=== PATIENT | female | born 2005 | race Caucasian/White ===

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

== ENCOUNTER → 2023-01-04 10:33 | Outpatient (BNVA) | payer MEDICAID, SELFPAY | PROVIDERS: PCP Nurse Practitioner Family; Visit Provider Obstetrics & Gynecology | DX: Z34.92 Encounter for supervision of normal pregnancy, unspecified, second trimester (principal); Z3A.21 21 weeks gestation of pregnancy | CPT/HCPCS: 76816 ==

== ENCOUNTER → 2023-01-18 13:02 | Outpatient (BNVA) | payer MEDICAID, SELFPAY | PROVIDERS: PCP Nurse Practitioner Family; Visit Provider Nurse Practitioner Women's Health | DX: Z34.80 Encounter for supervision of other normal pregnancy, unspecified trimester (principal); Z3A.00 Weeks of gestation of pregnancy not specified | CPT/HCPCS: 82950; 84315 ==

== ENCOUNTER → 2023-02-16 14:46 | Outpatient (BNVA) | payer MEDICAID, SELFPAY | PROVIDERS: PCP Nurse Practitioner Family; Visit Provider Obstetrics & Gynecology | DX: Z34.80 Encounter for supervision of other normal pregnancy, unspecified trimester (principal); Z3A.00 Weeks of gestation of pregnancy not specified | CPT/HCPCS: 84315; 85025 ==

== ENCOUNTER → 2023-03-16 09:09 | Outpatient (BNVA) | payer MEDICAID, SELFPAY | PROVIDERS: PCP Nurse Practitioner Family; Visit Provider Obstetrics & Gynecology | DX: Z34.80 Encounter for supervision of other normal pregnancy, unspecified trimester (principal); Z3A.00 Weeks of gestation of pregnancy not specified | CPT/HCPCS: 84315; 85025 ==

== ENCOUNTER → 2023-03-30 10:00 | Outpatient (BNVA) | payer MEDICAID, SELFPAY | PROVIDERS: PCP Nurse Practitioner Family; Visit Provider Nurse Practitioner Women's Health | DX: O99.019 Anemia complicating pregnancy, unspecified trimester (principal); Z3A.00 Weeks of gestation of pregnancy not specified | CPT/HCPCS: 82607; 82728; 82746; 83550; 84315; 85025 ==

== ENCOUNTER 2023-04-11 08:58 | Oncology outpatient (recurring) (ONCR) | payer MEDICAID, SELFPAY ==
[2023-04-06] MEDS: iron sucrose 500 MG in sodium chloride 0.9% 250 ML 78 MG IV (12:44)
[2023-04-06 16:11] VITALS: BP 122/73; PULSE 78; RESP 17; TEMP 36.6; O2SAT 98
[2023-04-11 10:22] VITALS: BP 124/86; PULSE 86; RESP 16
[2023-04-11] MEDS: iron sucrose 500 MG in sodium chloride 0.9% 250 ML 78 MG IV (10:27)
[2023-04-11 13:25] VITALS: BP 117/74; PULSE 85
== END 2023-04-20 23:59 | disposition home or self-care (01) ==
PROVIDERS: PCP Nurse Practitioner Family; Visit Provider Nurse Practitioner Family
DX: Z53.9 Procedure and treatment not carried out, unspecified reason (principal); O99.013 Anemia complicating pregnancy, third trimester; D50.9 Iron deficiency anemia, unspecified; D51.9 Vitamin B12 deficiency anemia, unspecified; Z3A.36 36 weeks gestation of pregnancy; Z79.899 Other long term (current) drug therapy
CPT/HCPCS: 96365; 96366; 99204; J1756; J7050

== ENCOUNTER → 2023-04-13 08:00 | Outpatient (BNVA) | payer MEDICAID, SELFPAY | PROVIDERS: PCP Nurse Practitioner Family; Visit Provider Obstetrics & Gynecology | DX: Z34.80 Encounter for supervision of other normal pregnancy, unspecified trimester (principal); Z3A.00 Weeks of gestation of pregnancy not specified | CPT/HCPCS: 84315; 87081; 87086 ==

== ENCOUNTER 2023-05-01 20:31 | Inpatient (IN) | payer MEDICAID, SELFPAY ==
[2023-05-01] VITALS (9 sets, daily range): BP systolic 103–127; BP diastolic 51–68; PULSE 66–81; RESP 18; BMI 34.4
[2023-05-01 20:27] LABS: Basophils % 0.2 %; Eosinophils # 0.1 10^3/uL (0.0-0.8); Eosinophils % 1.5 %; Hematocrit 33.1 % (36-47); Lymphocytes # 2.3 10^3/uL (1.5-6.5); Lymphocytes % 25.6 %; Mean Corpuscular HGB Conc 32.3 g/dL (30-55); Mean Corpuscular Hemoglobin 25.4 pg (27-33); Mean Corpuscular Volume 78.6 fl (85-98); Mean Platelet Volume 10.7 fL (7.4-10.4); Monocytes # 0.8 10^3/uL (0.2-0.9); Monocytes % 8.8 %; Neutrophils # 5.76 10^3/uL (1.8-8.0); Neutrophils % 63.5 %; Nucleated Red Blood Cells % 0 %; Platelet Count 222 10^3/cmm (157-399); Red Blood Count 4.21 10^6/uL (3.85-5.65); Red Cell Distribution Width 23.5 % (12.1-15.1); White Blood Count 9.09 10^3/uL (4.5-13.0)
[2023-05-01] MEDS: miSOPROStol 100 mcg tablet 25 MCG VAGINAL (20:57)
[2023-05-02] VITALS (128 sets, daily range): BP systolic 86–149; BP diastolic 49–85; PULSE 59–146; RESP 17–18; TEMP 28.2–37.1; O2SAT 97–100
[2023-05-02] MEDS: miSOPROStol 100 mcg tablet 25 MCG VAGINAL ×2 (01:44→05:44)
--- NOTE | 2023-05-02 08:22 | PM.OPHPUD ---
Labor & Delivery H&P Update Date of Procedure: May 02, 2023 Date H&P Performed: 04/27/23 H&P update information: I have reviewed H&P completed within last 30 days, I have examined patient prior to procedure and No changes to prior documentation Admission Diagnosis:
[2023-05-02] MEDS: dextrose 5%-lactated ringers 1,000 ML 125 ML IV ×3 (11:50→18:57)
[2023-05-02] MEDS: oxytocin 30 UNIT/500 ML BAG IV (11:50)
[2023-05-02] MEDS: lactated ringers 1,000 ML 999 ML IV (12:33)
[2023-05-02] MEDS: ROPivacaine syringe 100 MG/50 ML SYRINGE 10 MG EPIDURAL ×2 (13:28→17:42)
--- NOTE | 2023-05-02 13:43 | P.ANESASSM_ITS ---
Pre-Anesthetic Assessment Height/Weight: Height 1.63 m Weight 91.172 kg Temp Pulse Resp BP Pulse Ox O2 Del Method 98.1 F 136 H 17 86/61 99 Room Air 05/02/23 07:18 05/02/23 13:40 05/02/23 07:18 05/02/23 13:40 05/02/23 13:29 05/01/23 19:00 Epidural Familial anesthetic complications: None Was Beta Tanya taken within 24 hours: N/A Was Clonidine taken within 24 hours: N/A Social No alcohol and No tobacco Exam alert, oriented x 3, clear to auscultation bilaterally and regular rate & rhythm Airway Mallampati: Class II Anesthetic Plan ASA status: 2 Anesthesia: Regional (specify below) Risk of > 500 ml blood loss (7ml/kg in children): Yes, adequate IV access and fluids planned Medications/Allergies Home Medications Medication Instructions Recorded Confirmed Last Taken Type PNV 153-FA 400 mcg-om3 35 mg-dha 1 tab PO 1XD 09/09/22 05/01/23 05/01/23 08:00 History 25 mg-epa 5 mg-fish oil chew tablet ( Gummies) ferrous sulfate 325 mg (65 mg 325 mg PO DAILY 03/30/23 05/01/23 05/01/23 08:00 History iron) tablet mecobalamin (vitamin B12) 1,000 1,000 mcg PO DAILY #30 tabs 04/11/23 05/01/23 Unknown Rx mcg chewable tablet Allergies Allergy/AdvReac Type Severity Reaction Status Date / Time No Known Allergies Allergy Verified 05/01/23 21:15 Current Medications Generic Name Dose Route Start Last Admin Trade Name Earnestine PRN Reason Stop Dose Admin Dextrose/Lactated Ringer's 1,000 mls @ 125 mls/hr 05/01/23 20:30 05/02/23 13:00 Dextrose 5%-Lactated Ringers IV Not Given .Q8H SHABANA Oxytocin 30 unit in 500 mls @ 1 mls/hr 05/02/23 10:15 05/02/23 12:20 Pitocin IV 2 milliunit/min .Q24H SHABANA 2 mls/hr Titration Protocol 1 MILLIUNIT/MIN Lactated Ringer's 1,000 mls @ 999 mls/hr 05/02/23 12:25 05/02/23 12:33 Lactated Ringers IV 999 mls/hr .Q1H1M PRN Administration See label comments Ropivacaine 100 mg in 50 mls @ 10 mls/hr 05/02/23 12:30 05/02/23 13:28 Naropin Syringe EPIDURAL 10 mls/hr .Q5H SHABANA Administration PFSH Anesthesia Medical History Iron deficiency anemia Anemia during 2021-- required iron infusion for 6 weeks No pertinent past medical history Denies diabetes, asthma, hypertension, seizures, DVT/PE PCP: Brii Ahn Surgical History No pertinent past surgical history Family History Family/Other Hypercholesteremia Maternal great grandmother Diabetes maternal aunt Father Hypertension Grandmother Hypertension Paternal Denies family history of Colon cancer Heart disease Breast cancer Uterine cancer Thyroid disease Stroke Female Reproductive History : 3 Data Anesthesia 05/01/23 19:50 Short CBC 05/01/23 Range/Units 19:50 WBC 9.09 (4.5-13.0) 10^3/uL Hgb 10.70 L (12.4-14.8) g/dL Hct 33.1 L (36-47) % MCV 78.6 L (85-98) fl Plt Count 222 (157-399) 10^3/cmm Neut % (Auto) 63.5 % Neut # (Auto) 5.76 (1.8-8.0) 10^3/uL Blood Bank 05/01/23 05/01/23 19:40 21:09 Blood Type Cancelled O Positive Rho(D) Type Cancelled Rh positive Antibody Screen Cancelled Negative Cardiac Studies: 2 No Data to Display
--- NOTE | 2023-05-02 13:43 | ANES.PROC ---
Anesthesia Procedures Procedure/Date: 05/02/23 Epidural: Time Out Performed: Yes Consents Signed: Procedure Consent and NPO Consent Consent: requested by attending/covering physician, from patient, from other, risks and benefits reviewed, patient agrees to proceed and emergency procedure Lumbar Level: L3-L4 Epidural position: sitting Epidural procedure: sterile prep of area, 1% lidocaine to numb the area, 18 g needle, negative for paresthesia passed, neg for paresthesia, test dose given, 1.5% xylocaine 1:200k epi (5 cc), 0.2% Ropivacaine bolus ml (5), placed PCEA, no systemic response, sterile dressing applied, L.U.D. no apparent complications and 0.2% Ropiavacaine @ mls/hr (13) Additional Comments: Anushka at 4.5 cm, threaded to 11 cm, decreased pain of contraction from 5/10 to 1/10
[2023-05-02] MEDS: ondansetron 2 mg/ML SDV 2 mL 4 MG IVP (14:07)
[2023-05-02] MEDS: oxytocin 30 UNIT/500 ML BAG 500 UNIT IV (22:00)
--- NOTE | 2023-05-02 22:23 | PM.DELIVERY ---
Delivery Note: Date of delivery: May 02, 2023 Pre-delivery diagnoses: Term Post-delivery diagnoses: Term delivered Procedure: A spontaneous vaginal delivery Delivering Physician: Ezio Montes MD Estimated blood loss (mL): 300 Delivery: The patient was noted to be complete and pushing, so was placed in the dorsal lithotomy position, prepped and draped in the usual sterile fashion for a vaginal delivery. Pt. Noted to have epidural anesthesia. At 2153 the patient delivered a viable term female infant weighing 3500 g with scores of 8 and 9 at one and five minutes, respectively. The vertex was delivered spontaneously over intact perineum. The patient was asked to push and the head delivered spontaneously in the GURPREET position, over an intact perineum. A nuchal cord was checked and 1 noted, and delivered through around head as necessary. The anterior shoulder delivered easily and the posterior shoulder followed. The remainder of the was easily delivered and the oropharynx and nasopharynx was bulb suctioned. The infant was noted to have spontaneous cry and spontaneous movement of all four extremities. The cord was clamped x 2 and cut and noted to have 2 arteries and one vein. The was passed to the mother's abdomen where nursing personnel were in attendance. Cord sample was then obtained. The placenta delivered intact spontaneously and the uterus was explored. 20 units of Pitocin was placed in the IV bag to firm the uterus. Examination of the cervix and vaginal vault did not reveal any lacerations. A vaginal pack was then placed. Examination of the perineum showed no lacerations. The vaginal pack was then removed. The patient tolerated this procedure well, and recovered in L&D with her infant [or note if infant taken to NICU]. All sponge and needle counts were correct. History History History 3 Term 1 0 Miscarriages/Ectopic 1 Living Children 1 Coding Level of Care Code Acute Code for Chg Fwd
[2023-05-02] MEDS: methylergonovine 0.2 mg/mL INJ 1 mL 0.200000000000000011 MG IM (22:24)
[2023-05-03] VITALS (7 sets, daily range): BP systolic 105–130; BP diastolic 63–79; PULSE 55–74; RESP 16; TEMP 36.7–37.1; O2SAT 97–99
[2023-05-03] MEDS: acetaminophen 325 mg Tablet 650 MG PO (02:08)
[2023-05-03] MEDS: docusate sodium 100 mg Capsule PO ×2 (10:28→18:48)
[2023-05-03] MEDS: ibuprofen 800 mg tablet PO ×2 (10:28→20:18)
[2023-05-03] MEDS: prenatal vitamin Capsule 1 CAP PO (10:28)
[2023-05-03 11:02] LABS: Hematocrit 36.1 % (36-47); Mean Corpuscular HGB Conc 31.9 g/dL (30-55); Mean Corpuscular Hemoglobin 25.3 pg (27-33); Mean Corpuscular Volume 79.3 fl (85-98); Mean Platelet Volume 10.2 fL (7.4-10.4); Platelet Count 207 10^3/cmm (157-399); Red Blood Count 4.55 10^6/uL (3.85-5.65); Red Cell Distribution Width 23.6 % (12.1-15.1); White Blood Count 12.25 10^3/uL (4.5-13.0)
--- NOTE | 2023-05-03 20:40 | P.PN_ITS ---
Subjective 2 Subjective: : 18-year-old female is status post a spontaneous vaginal delivery date 1. No complaints Vitals/I&O/Wt Last Vital Signs Temp 97.9 F 05/04/23 04:00 Pulse 61 05/04/23 04:00 Resp 14 05/04/23 04:00 BP 104/64 05/04/23 04:00 Pulse Ox 98 05/04/23 04:00 O2 Del Method Room Air 05/04/23 04:00 Physical Exam 2 Narrative: GA; alert and oriented x 3 HEENT: normal Breasts: engorged Nipples - skin intact Lungs; clear to auscultation Heart: regular rhythm, no murmurs. Abd: Appropriately tender. BS+. Uterine fundus below umbilicus. No Fundal Tenderness. Perineum: normal lochia. Extremities: no edema, no cyanosis, no tenderness. Urinary Catheter Management: Chávez Latex Free: Cath Placed During This Visit: yes, but has since been removed by the nurse Reason for Continuing Indwelling Catheter: Decision to DC Catheter Date Urinary Catheter Removed: 05/03/23 Time Urinary Catheter Discontinued: 21:20 Data 05/03/23 10:30 A&P Assessment and plan (1) Term delivered: Mrs. Galo 18-year-old female G2, P2 admitted for elective induction who is status post spontaneous vaginal delivery day 1. Afebrile and hemodynamically stable. Tolerating diet well. Ambulating without difficulty. Will discharge home after 24 hours Attestations 2 Medical Necessity Statement*: In my professional opinion poor admitting diagnosis. Coding Level of Care Code Acute Code for Chg Fwd Diagnoses Term delivered O80
--- NOTE | 2023-05-03 20:49 | PC.NURSE ---
-This nurse Ana Lilia Joseph RN placed call to Dr. Montes at 2004 to update on patient status. Patient requested to see if she could be discharge tonight. It was handed off in report that the patient had not been see by the physician since delivery 05/02/23 at 2153. When asked patient denies seeing physician since delivery as well. At this time this nurse requested Dr. Montes at bedside to round on patient per policy. Dr. Montes reported that he would not be coming in and he would be in in the morning to discharge the patient. This nurse restated that no physician had been to see the patient since delivery. Dr. Montes stated I will be in in the morning to discharge. and hung up the phone. -Luciana Boo RN charge nurse for the evening placed call to Dr. Montes at 2007 to restate that a physician has not yet seen the patient since delivery, and per policy we have to have a physician see the patient every calendar day. Dr. Montes stated you can report me, I will see her tomorrow, bye. then hung up the phone. -Luciana Boo RN notified art manager Ellie Fan RN and day sales department supervisor Ariel Valdes RN of incident. -2029 Dr. Montes reported to Labor and Delivery and walked in patients room. 2030 off unit.
[2023-05-04 04:00] VITALS: BP 104/64; PULSE 61; RESP 14; TEMP 36.6; O2SAT 98
[2023-05-04] MEDS: docusate sodium 100 mg Capsule PO (08:18)
--- NOTE | 2023-05-04 08:19 | PM.OBGYDC ---
Discharge Providers TRANSITION MGR Date of Admission: 05/01/23 20:31 Date of Discharge: 05/04/23 Attending Provider at Admission: Ezio Montes MD Attending Provider at Discharge: Ezio Montes MD Primary TRANSITION MGR: Ezio Montes MD Primary Care Provider: HAYDEN Uribe Diagnoses at Discharge Discharge Diagnosis (1) Term delivered: Status: Resolved Reason for Visit Reason for Visit: IOL Hospital Course Hospital Course Ms. Sanz is an 18 year old at needed with term for elective induction. She received misoprostol for cervical ripening followed by oxytocin for augmentation of labor. She progressed to a spontaneous vaginal delivery without complications and delivered a viable term female infant weighing 3500 g with scores of 8 and 9. observation was uneventful. She was counseled regarding Information Peripartum Data: Infant Delivery Method: Vaginal Physical Exam Narrative: GA; alert and oriented x 3 HEENT: normal Breasts: engorged Nipples - skin intact Lungs; clear to auscultation Heart: regular rhythm, no murmurs. Abd: Appropriately tender. BS+. Uterine fundus below umbilicus. No Fundal Tenderness. Perineum: normal lochia. Extremities: no edema, no cyanosis, no tenderness. Urinary Catheter Management: Chávez Latex Free: Cath Placed During This Visit: yes, but has since been removed by the nurse Reason for Continuing Indwelling Catheter: Decision to DC Catheter Date Urinary Catheter Removed: 05/03/23 Time Urinary Catheter Discontinued: 21:20 History History History 3 Term 1 0 Miscarriages/Ectopic 1 Living Children 1 Discharge Data Studies Completed and Pending Laboratory Results WBC 12.25 10^3/uL (4.5-13.0) 05/03/23 10:30 RBC 4.55 10^6/uL (3.85-5.65) 05/03/23 10:30 Hgb 11.50 g/dL (12.4-14.8) L 05/03/23 10:30 Hct 36.1 % (36-47) 05/03/23 10:30 MCV 79.3 fl (85-98) L 05/03/23 10:30 MCH 25.3 pg (27-33) L 05/03/23 10:30 MCHC 31.9 g/dL (30-55) 05/03/23 10:30 RDW 23.6 % (12.1-15.1) H 05/03/23 10:30 Plt Count 207 10^3/cmm (157-399) 05/03/23 10:30 MPV 10.2 fL (7.4-10.4) 05/03/23 10:30 Neut % (Auto) 63.5 % 05/01/23 19:50 Lymph % (Auto) 25.6 % 05/01/23 19:50 Todd % (Auto) 8.8 % 05/01/23 19:50 Eos % (Auto) 1.5 % 05/01/23 19:50 Baso % (Auto) 0.2 % 05/01/23 19:50 Neut # (Auto) 5.76 10^3/uL (1.8-8.0) 05/01/23 19:50 Lymph # (Auto) 2.3 10^3/uL (1.5-6.5) 05/01/23 19:50 Todd # (Auto) 0.8 10^3/uL (0.2-0.9) 05/01/23 19:50 Eos # (Auto) 0.1 10^3/uL (0.0-0.8) 05/01/23 19:50 Baso # (Auto) 0.0 10^3/uL (0.0-0.1) 05/01/23 19:50 Nucleated RBC % (auto) 0 % 05/01/23 19:50 Nucleated RBCs # 0.0 /100WBC 05/01/23 19:50 Blood Type O Positive 05/01/23 21:09 Rho(D) Type Rh positive 05/01/23 21:09 Antibody Screen Negative 05/01/23 21:09 Vitals Last Vital Signs Temp 97.9 F 05/04/23 04:00 Pulse 61 05/04/23 04:00 Resp 14 05/04/23 04:00 BP 104/64 05/04/23 04:00 Pulse Ox 98 05/04/23 04:00 O2 Del Method Room Air 05/04/23 04:00 Results Labs OB ([facility]): Obstetrics US 01/04/23 Blood Type O Positive 05/01/23 Antibody Screen Negative 05/01/23 Hct 36.1 % (36-47) 05/03/23 Hgb 11.50 g/dL (12.4-14.8) L 05/03/23 Rho(D) Type Rh positive 05/01/23 Plt Count 207 10^3/cmm (157-399) 05/03/23 Hep Bs Antigen Non-reactive (Nonreactive) 09/29/22 Hepatitis C Antibody Non-reactive (Nonreactive) 09/29/22 Rubella IgG Antibody 75.9 IU/mL (0.0-10.0) H 09/29/22 RPR Nonreactive (Nonreactive) 09/29/22 HIV 1&2 Ab & HIV 1 Ag Non-reactive (Non-Reactiv) 09/29/22 TSH 0.85 uIU/mL (0.27-4.20) 03/10/22 C.trachomatis RNA (TMA) Not detected (NOT DETECTED) 10/13/22 N.gonorrhoeae RNA (TMA) Not detected (NOT DETECTED) 10/13/22 T. vaginalis Amp RNA Not detected (NOT DETECTED) 10/13/22 Chlamydia/GC Comment See note 10/13/22 Cystic Fibrosis Screen Negative 01/19/21 Gest Glucose Tolerance 88 mg/dL (70-139) 01/18/23 Ser , Semi-Qnt 7489.00 mIU/mL 09/09/22 HCG, Qual Positive (Negative) H 09/09/22 Urine Opiates Screen Negative ng/mL (Negative) 09/29/22 Ur Barbiturates Screen Negative ng/mL (Negative) 09/29/22 Ur Phencyclidine Scrn Negative ng/mL (Negative) 09/29/22 Ur Amphetamines Screen Negative ng/mL (Negative) 09/29/22 U Benzodiazepines Scrn Negative ng/mL (Negative) 09/29/22 Urine Cocaine Screen Negative ng/mL (Negative) 09/29/22 U Marijuana (THC) Screen Negative ng/mL (Negative) 09/29/22 Micro Urine Specimen 04/13/23 Discharge Plan Discharge Patient Disposition: Home Condition: Stable Prescriptions: New ibuprofen 800 mg tablet 800 mg PO TID PRN (Reason: pain) Qty: 60 0RF acetaminophen 325 mg capsule 325 mg PO Q4H PRN (Reason: fever or pain) Qty: 60 0RF Continued Gummies 400 mcg-35 mg- 25 mg-5 mg tablet,chewable 1 tab PO 1XD ferrous sulfate 325 mg (65 mg iron) tablet 325 mg PO DAILY mecobalamin (vitamin B12) 1,000 mcg tablet,chewable 1,000 mcg PO DAILY Qty: 30 2RF Discharge Orders: Discharge Order (Routine); Ordered 05/04/23 Ordered By: Ezio Montes Referrals: Ezio Montes MD [Physician] - 6 Weeks Discharge Diet: Usual diet Discharge Activity: Limit activity as instructed Patient Instructions: Opioid Safety, Vaginal Delivery (GEN), Your [place] Appearance (GEN), Bleeding (GEN), Choosing Between Vaginal After () or Repeat... (GEN), Caring for Your Baby (GEN) Activity Restrictions/Additional Instructions: 1. Please call [facility] on next working day to make your appointment in 6 weeks. 2. Please stay home until you come back to the clinic on first post-hospatilization check up. 3. Please follow instructions on your medications CAREFULLY. 4. If you have abdominal incision, do not cover it unless dressing is necessary because of drainage. OK to shower, but avoid bath. Leave steri-strips until they fall off. If they are still on one week after surgery, you may remove them. 5. If you had vaginal surgery or vaginal repair, Dr. Montes may instruct you to take SITZ bath. 6. Yellow, blood tinged odorous vaginal discharge is usually normal after hysterectomy or vaginal surgeries. 7. No SEXUAL INTERCOURSE, tampons, or douches until you are completely released from the post-operative care. 8. Avoid constipation by eating right and maybe using some Metamucil or Milk of Magnesia. 9. All prescription refills are given during the working hours. Please do no wait till it runs out. Call the clinic at [phone] before your medication runs out. The clinic will get in touch with your doctor to prescribe medications if necessary. 10. Please remain within 40 mile radius from our hospital because emergencies do happen now and then during the post-operative period. 11. If you have stairs at home, take one step at a time slowly and minimize the number of trips. It helps to stay in one floor for the next few days. No lifting except what you can lift by one hand until you are released from the post-operative care. 12. Driving is discouraged until you are well healed. It may be 3-4 weeks before you feel strong enough to drive. You should be able to turn and look through the rear window without pain and you should be able to push the brake pedal very hard without pain before you drive. No fast rules, but SAFETY should be your primary concern. DO NOT drive if you are on sedating medications such as narcotics. 13. Call the clinic (during working hours) to make urgent appointment or go to the Emergency room, if any of the following occurs: i. Vaginal bleeding becomes heavy, more than a period. ii. Incision becomes red and sore, or drains pus. iii. Your TEMPERATURE is over 100.4F or you have chill. iv. IV site becomes red and swollen (a little ``knot?? is usually OK) v. Persistent nausea and vomiting vi. Persistent constipation or diarrhea vii. Rash or allergic reaction to medications. Discharge Attestations TRANSITION MGR Time Spent in Discharge Care*: greater than 30 min Coding Level of Care Code Acute Code for Chg Fwd Diagnoses Term delivered O80
--- NOTE | 2023-05-04 08:29 | ANE.PACU2 ---
Inpatient post-anesthesia follow up: Airway intact: Yes Vital signs: Temperature 98.2 F Pulse Rate 90 Respiratory Rate 17 Blood Pressure 121/82 Pulse Oximetry 98 Oxygen Delivery Me thod Room Air Oxygen Flow Rate Fraction of Inspir ed Oxygen Hydration adequate: Yes Nausea and vomiting: No Pain level: 1 Mental status: Baseline Epidural Start/End: Epidural Start Date: 05/02/23 Epidural Start Time: 13:24 Epidural End Date: 05/02/23 Epidural End Time: 22:34
[2023-05-04] MEDS: prenatal vitamin Capsule 1 CAP PO (09:02)
[2023-05-04] MEDS: ibuprofen 800 mg tablet PO (09:02)
[2023-05-04 09:10] VITALS: BP 121/82; PULSE 90; RESP 17; TEMP 36.8
== END 2023-05-04 09:15 | disposition home or self-care (01) | DRG 807 ==
LOC: OPOB 20:31 → OBGYN 20:31
PROVIDERS: Admitting Provider Obstetrics & Gynecology; PCP Nurse Practitioner Family; Visit Provider Obstetrics & Gynecology
DX: O99.02 Anemia complicating childbirth (principal); Z37.0 Single live birth; D50.9 Iron deficiency anemia, unspecified; Z3A.38 38 weeks gestation of pregnancy
CPT/HCPCS: 36415; 51702; 59025; 59409; 85025; 85027; 86850; 86900; 96372; 96374; J2210; J2405; J2590; J2795; J7120; J7121

== ENCOUNTER → 2023-06-02 11:45 | Outpatient (BNVA) | payer MEDICAID, SELFPAY | PROVIDERS: PCP Nurse Practitioner Family; Visit Provider Obstetrics & Gynecology | DX: Z30.9 Encounter for contraceptive management, unspecified (principal) | CPT/HCPCS: 81025 ==